=== PATIENT | female | born 1980 | race Caucasian/White ===

== ENCOUNTER → 2016-12-03 | Outpatient (CLI) | payer OTHER ==
--- NOTE | 2016-12-03 09:25 | MR ---
EXAMINATION TYPE: MR knee RT wo con DATE OF EXAM: 12/03/2016 7:24 AM COMPARISON: NONE HISTORY: Right knee pain TECHNIQUE: Multiplanar, multisequence imaging of the right knee is performed without IV contrast. FINDINGS: MEDIAL MENISCUS: There is linear signal within the posterior horn of the medial meniscus which extend s to the periphery of the meniscus. The microtear is difficult to exclude. The remainder of the media l meniscus appears homogeneous. LATERAL MENISCUS: Anterior and posterior horns are intact without tear. CRUCIATE LIGAMENTS: The anterior and posterior cruciate ligaments are intact and unremarkable. COLLATERAL LIGAMENTS: The medial collateral ligament and lateral collateral ligament complex are inta ct and unremarkable. EXTENSOR MECHANISM: Visualized quadriceps and patellar tendons are intact. EFFUSION: No significant suprapatellar joint effusion. POPLITEAL CYST: No popliteal/marcial cyst. TRICOMPARTMENT SPACES: Intact CARTILAGE: Intact BONE MARROW SIGNAL: No focal abnormal marrow signal is appreciated. OTHER: No additional significant abnormality is appreciated. IMPRESSION: There is linear signal within the posterior horn of the medial meniscus which extends to the peripher y of the meniscus. The microtear is difficult to exclude.
== END | disposition home or self-care (01) ==
LOC: RADMRIMAIN 06:36
PROVIDERS: ATTEND Orthopaedic Surgery
DX: M25.561 Pain in right knee (principal)

== ENCOUNTER → 2017-02-25 | Outpatient (CLI) | payer OTHER ==
[2017-02-25 09:31] LABS: Basophils % (A) 0 %; CH 30.8; CHCM 33.4; Eosinophils # (A) 0.2 k/uL (0-0.7); Eosinophils % (A) 2 %; HCT 45.4 % (34.0-46.0); Luc # (Auto) 0.09; Luc % (Auto) 1; Lymphocytes # (A) 1.9 k/uL (1.0-4.8); Lymphocytes % (A) 21 %; MCH 30.6 pg (25.0-35.0); MCHC 32.9 g/dL (31.0-37.0); MCV 92.8 fL (80.0-100.0); Mean Platelet Volume 6.9; Monocytes # (A) 0.4 k/uL (0-1.0); Monocytes % (A) 5 %; Neutrophils # (A) 6.4 k/uL (1.3-7.7); Neutrophils % (A) 72 %; RBC 4.89 m/uL (3.80-5.40); RDW 12.5 % (11.5-15.5); WBC (Perox) 9.26
[2017-02-25 10:17] LABS: Potassium 4.2 mmol/L (3.5-5.1)
== END | disposition home or self-care (01) ==
LOC: LABPAT 08:26
PROVIDERS: ATTEND Orthopaedic Surgery
DX: Z01.812 Encounter for preprocedural laboratory examination (principal)
CPT/HCPCS: 80051; 85025

== ENCOUNTER 2017-03-26 07:46 | Day surgery (SDC) | payer OTHER ==
[2017-03-20 11:09] VITALS: BMI 20.8
--- NOTE | 2017-03-26 07:08 | P.HPOR ---
History of Present Illness H&P Date: 03/26/17 Chief Complaint: 36-year-old patient seen with progressive right knee pain Past Medical History Past Medical History: Musculoskeletal Disorder Additional Past Medical History / Comment(s): HYPOGLYCEMIC. OCC ELEV BLOOD PRESSURE. RT KNEE PAIN. HERNIATED DISCS X2, C-1 & S-1. History of Any Multi-Drug Resistant Organisms: None Reported Past Surgical History: No Surgical Hx Reported Additional Past Anesthesia/Blood Transfusion Reaction / Comment(s): NO PREVIOUS ANESTHESIA. Smoking Status: Current every day smoker - Past Family History Mother Additional Family Medical History / Comment(s): MS Medications and Allergies Home Medications Medication Instructions Recorded Confirmed Type Bcp (Unsure Of Name) 1 tab PO HS 03/20/17 History Allergies Allergy/AdvReac Type Severity Reaction Status Date / Time Penicillins Allergy Itching Verified 03/20/17 10:47 Physical Examination Osteopathic Statement: *. No significant issues noted on an osteopathic structural exam other than those noted in the History and Physical/Consult. Range of motion 0-130. Tenderness along the medial joint line. Positive medial Nguyễn's. Tenderness along the lateral joint line. Positive lateral Nguyễn's. Ligaments are stable. Hip rotation is without pain. Distal neurovascular exam is intact. Results X-ray right knee 11/19/16 no evidence for bony abnormality MRI right knee 12/03/16 abnormal signal medial meniscus Assessment and Plan Plan: Assessment: Internal derangement right knee with medial meniscal tear Plan: Arthroscopy right knee with partial meniscectomy and debridement
[~2017-03-26 07:46] MED LIST: DEXAMETHASONE SOD PHOSPHATE 10 MG/ML 1 ML VIAL IV ONE; HYDROmorphone 1 MG/ML 1 ML SYRINGE IVP PRN; LACTATED RINGERS 1,000 ML IV SCH; MIDAZOLAM 2 MG/2 ML VIAL IV PRN; ONDANSETRON 4 MG/2 ML VIAL IVP ONE; ceFAZolin 1,000 MG in DEXTROSE/WATER 1 50ML.BAG IV ONE
[2017-03-26] MEDS ORDERED: LIDOCAINE 1% 20 ML VIAL (10MG/ML) FOR IV START INTRADERMA ONE (08:18)
[2017-03-26] MEDS ORDERED: fentaNYL (PF) 50 MCG/ML 2 ML AMP ONE (09:49)
[2017-03-26] MEDS ORDERED: MIDAZOLAM 2 MG/2 ML VIAL ONE (09:49)
[2017-03-26] MEDS ORDERED: KETOROLAC 30 MG/ML 1 ML VIAL ONE (09:49)
[2017-03-26] MEDS ORDERED: PROPOFOL 10 MG/ML 20 ML VIAL IV ONE (09:49)
[2017-03-26] MEDS ORDERED: LIDOCAINE 1% INJ 10MG/ML (20 ML MDV) ONE (09:49)
[2017-03-26] MEDS ORDERED: BUPIVACAIN-EPI 0.25%-1:200,000 30 ML VIAL INTRAARTIC ONE (09:49)
[2017-03-26] MEDS ORDERED: SODIUM CHLORIDE 0.9% 100 ML with CLINDAMYCIN 600 MG IV ONE ×2 (10:00)
--- NOTE | 2017-03-26 10:34 | P.OP ---
Date of Procedure: 03/26/17 Preoperative Diagnosis: Internal derangement right knee Postoperative Diagnosis: 1. Tear medial meniscus right knee 2. 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 Grade 1/2 chondromalacia patella right knee 4. Reactive synovitis medial and suprapatellar compartments right knee Procedure(s) Performed: 1. Arthroscopic partial medial meniscectomy right knee 2. Arthroscopic chondroplasty medial femoral condyle right knee 3. Arthroscopic chondroplasty patella right knee 4. Arthroscopic partial synovectomy medial and suprapatellar compartments right knee Implants: Anesthesia: GETA, local Surgeon: Asher Gresham Estimated Blood Loss (ml): 7 Pathology: none sent Condition: stable Disposition: PACU Indications for Procedure: 36-year-old patient seen with progressive right knee pain. After treatment options were discussed, she elected to proceed with arthroscopy. Operative Findings: See description of procedure Description of Procedure: Patient was taken to the operative suite. Patient underwent a general anesthetic by the department of anesthesia. Patient was given preoperative antibiotics. The right lower extremity was placed in a well-padded arthroscopic leg bundy. The right leg was prepped and draped in the normal sterile orthopedic fashion. A lateral parapatellar and suprapatellar incision was made. Trochars were inserted. Arthroscopy was initiated. Suprapatellar pouch revealed thick reactive synovitis. The patellofemoral joint appeared to articulate congruently. There was grade 1/2 chondromalacia with some osteochondral tears present. The scope was guided into the medial gutter. No loose bodies or plica were identified. The scope was then guided into the medial compartment. A medial parapatellar incision was made. Trocar inserted followed by probe. There was a small radial tear posterior horn medial meniscus. There were grade 1/2 chondromalacia changes weightbearing surface medial femoral condyle with some osteochondral tears present. The medial tibial plateau was unremarkable. There was some reactive synovitis anteriorly. A partial medial meniscectomy was performed down to stable tissue. I performed a chondroplasty of the medial femoral condyle down to stable tissue. I performed a partial synovectomy. The residual meniscus was probed and found to be stable. The residual osteochondral surface was stable as well. Scope and probe were then guided into the intercondylar notch. Cruciates were identified, probed and found to be stable. The scope and probe were then guided into lateral compartment. The lateral meniscus was probed and found to be stable. The lateral femoral condyle and tibial plateau were stable. There was no reactive synovitis or loose bodies. The scope was in guided back into the suprapatellar compartment. I introduced a motorized shaver into the super patellar compartment performing a chondroplasty of the patella down to stable tissue. I debrided some piecemeal fragments of meniscus. I performed a partial synovectomy. Instruments were now removed from the joint. I took one more look on the entire knee, no residual debris. The joint was infiltrated with .25% Marcaine. Steri-Strips were applied to the portal sites. Sterile dressings were applied. The patient was placed into a AVILA hose. No tourniquet was utilized. The patient was awakened, transferred to a bed and taken to recovery stable satisfactory condition.
[2017-03-26 10:37] VITALS: TEMP 97.4
[2017-03-26] MEDS ORDERED: LACTATED RINGERS 1,000 ML IV ONE (10:49)
[2017-03-26 11:47] VITALS: RESP 18
[2017-03-26] MEDS ORDERED: traMADol 50 MG TAB PO ONE (11:48)
[2017-03-26 12:28] VITALS: BP 105/67; PULSE 67
== END 2017-03-26 12:26 | disposition home or self-care (01) ==
LOC: OR 07:46
PROVIDERS: ATTEND Orthopaedic Surgery
DX: S83.241A Other tear of medial meniscus, current injury, right knee, initial encounter (principal); X58.XXXA Exposure to other specified factors, initial encounter; M22.41 Chondromalacia patellae, right knee; M65.861 Other synovitis and tenosynovitis, right lower leg; G35 Multiple sclerosis; Z79.3 Long term (current) use of hormonal contraceptives; Z88.0 Allergy status to penicillin
CPT/HCPCS: 81025; 29881; J2250; J1100; J2405; J2001; J3010; J1885; J2704

== ENCOUNTER → 2017-06-17 | Outpatient (CLI) | payer OTHER ==
[2017-06-17 13:49] LABS: Basophils % (A) 0 %; CH 29.9; CHCM 32.5; Eosinophils # (A) 0.2 k/uL (0-0.7); Eosinophils % (A) 2 %; HCT 43.4 % (34.0-46.0); HDW 2.55; HGB 14.4 gm/dL (11.4-16.0); Luc # (Auto) 0.12; Luc % (Auto) 1; Lymphocytes # (A) 1.3 k/uL (1.0-4.8); Lymphocytes % (A) 15 %; MCH 30.7 pg (25.0-35.0); MCHC 33.3 g/dL (31.0-37.0); MCV 92.4 fL (80.0-100.0); Mean Platelet Volume 6.8; Monocytes # (A) 0.4 k/uL (0-1.0); Monocytes % (A) 5 %; Neutrophils # (A) 6.8 k/uL (1.3-7.7); Neutrophils % (A) 77 %; RDW 12.4 % (11.5-15.5); WBC 8.8 k/uL (3.8-10.6); WBC (Perox) 8.74
== END | disposition home or self-care (01) ==
LOC: LABPAT 12:40
PROVIDERS: ATTEND Obstetrics & Gynecology
DX: Z01.812 Encounter for preprocedural laboratory examination (principal)
CPT/HCPCS: 85025

== ENCOUNTER 2017-06-25 05:51 | Day surgery (SDC) | payer OTHER ==
[2017-06-24 08:46] VITALS: BMI 21.2
--- NOTE | 2017-06-24 13:11 | P.HPOB ---
History of Present Illness H&P Date: 06/24/17 Chief Complaint: Persistent high grade cervical dysplasia This patient is a pleasant female who has persistent HGSIL on her pap despite cyrotherapy. Her history is such that she had TYESHA II in 2012 and had cryo. Patient pap has shown ASCUS cannot rule out HGSIL. She is requesting LEEP instead of a repeat colpo. 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 States has Hypogylcemia. History of Any Multi-Drug Resistant Organisms: None Reported Past Surgical History: Orthopedic Surgery Additional Past Surgical History / Comment(s): R knee. Additional Past Anesthesia/Blood Transfusion Reaction / Comment(s): States woke up crying from last surgery. Smoking Status: Current every day smoker - Past Family History Mother Family Medical History: No Reported History Medications and Allergies Home Medications Medication Instructions Recorded Confirmed Type Control Medication 1 tab PO DAILY 06/24/17 06/24/17 History Allergies Allergy/AdvReac Type Severity Reaction Status Date / Time Penicillins Allergy Itching Verified 06/24/17 08:33 Exam - Vital Signs Vital signs: Intake and Output 06/23/17 06/24/17 06/24/17 22:59 06:59 14:59 Other: Weight 63.503 kg Patient Weight 06/25/17 06:59 Weight 63.503 kg - OBG Physical Exam Abdomen: bowel sounds normal, no diffuse tenderness, no bruit present, no guarding noted, no hepatomegaly, no splenomegaly, no mass Vulva: both: normal Vagina: normal moisture, no discharge Cervix: no lesion, no discharge Uterus: normal size, normal contour Results Pap on 05/06/2017 shows ASCUS with positive HR HPV and cannot exclude HGSIL Assessment and Plan (1) Pap smear cannot exclude high grade squamous intraepithelial lesion (ASC-H) Narrative/Plan: This is a pleasant 36 yr female with HGSIL on pap, persistent. Desires LEEP excision. Plan is colposcopy with LEEP excision of the ecto/endo cervix. I have discussed this surgery in detail with the patient including the risks: infection, bleeding, possible cervical incompetence and future loss. She also understands the final pathology may not reveal high grade changes. All of the patients questions were answered and a written consent was obtained. Status: Chronic
[~2017-06-25 05:51] MED LIST changes: +HYDROmorphone 0.5 MG/0.5 ML SYRINGE IVP PRN; -HYDROmorphone 1 MG/ML 1 ML SYRINGE IVP PRN; +Pre Op ABX Message 1 EACH MISC MISCELLANE ONE; +SCOPOLAMINE 1.5MG/72HR PATCH TRANSDERM ONE; -ceFAZolin 1,000 MG in DEXTROSE/WATER 1 50ML.BAG IV ONE
[2017-06-25] MEDS ORDERED: LACTATED RINGERS 1,000 ML IV ONE (06:11)
[2017-06-25] MEDS ORDERED: LIDOCAINE 1% 20 ML VIAL (10MG/ML) FOR IV START INTRADERMA ONE (06:24)
[2017-06-25 06:25] LABS: Glucose,Whole Blood 93 mg/dL (75-99)
[2017-06-25] MEDS ORDERED: MIDAZOLAM 2 MG/2 ML VIAL ONE (07:20)
[2017-06-25] MEDS ORDERED: LIDOCAINE 1% INJ 10MG/ML (20 ML MDV) ONE (07:20)
[2017-06-25] MEDS ORDERED: fentaNYL (PF) 50 MCG/ML 2 ML AMP ONE (07:20)
[2017-06-25] MEDS ORDERED: PROPOFOL 10 MG/ML 20 ML VIAL IV ONE (07:20)
[2017-06-25] MEDS ORDERED: IODINE/POTASS IOD (LUGOLS) BTL TOPICAL ONE (07:29)
[2017-06-25] MEDS ORDERED: FERRIC SUBSULFATE (MONSELS) JAR TOPICAL ONE (07:29)
--- NOTE | 2017-06-25 07:48 | P.OP ---
Date of Procedure: 06/25/17 Preoperative Diagnosis: High-grade abnormal Pap smear Postoperative Diagnosis: Same Procedure(s) Performed: Colposcopy with LEEP excision of the ectocervix and endocervix Anesthesia: MAC Surgeon: Yunier Arana Estimated Blood Loss (ml): 10 Urine output (ml): 50 Pathology: other (Ectocervix and endocervix) Condition: stable Disposition: PACU Indications for Procedure: Please see dictated H&P for intimate details of this patient's admission. Brief summary this pleasant 36-year-old 1 para 1 female who has abnormal Pap smear with high-grade changes. Patient's had this previously and had a cryo-done of the cervix she's now requesting LEEP excision of this area. Patient does understand this procedure and risks including risks of infection, bleeding, possible cervical incompetence in future pregnancies. Patient's questions are answered written consent is obtained. Operative Findings: No ectocervix lesions were noted on colposcopy Description of Procedure: This patient is taken to the operating room where she is laid in the supine position. She subsequently goes general mask anesthesia without incident. With an adequate level of anesthesia she's placed in the dorsal lithotomy position. She has a vaginal perineal prep and drape. I then drain her bladder for 50 mL of clear urine. The laser speculum was then placed into the vagina. Cervix is visualized and colposcopy is performed. Using a large LEEP loop on a 60/70 cutting cautery setting, I make one pass and completely remove the transformation zone of the ectocervix. A second pass is made with the small LEEP loop and the endocervix is excised. Both pieces are sent off separately to pathology. Cauterization is then done of the ectocervix the margins and the base with good hemostasis. Monsel's solution is used to completely assure hemostasis. This point the procedure is terminated. All counts are correct 3. There are no complications. Patient is taken to the recovery room in satisfactory condition.
[2017-06-25 07:55] VITALS: TEMP 97.9
[2017-06-25] MEDS ORDERED: KETOROLAC 30 MG/ML 1 ML VIAL IVP ONE (08:15)
[2017-06-25 08:18] VITALS: RESP 16
[2017-06-25] MEDS ORDERED: Acetaminophen-Codeine 300-30mg TAB PO ONE (08:45)
[2017-06-25 08:50] VITALS: BP 105/71; PULSE 63
== END 2017-06-25 09:21 | disposition home or self-care (01) ==
LOC: OR 05:51
PROVIDERS: ATTEND Obstetrics & Gynecology
DX: N87.0 Mild cervical dysplasia (principal); N72 Inflammatory disease of cervix uteri; Z79.3 Long term (current) use of hormonal contraceptives; Z88.0 Allergy status to penicillin
CPT/HCPCS: 57522; 81025; 88307; J2250; J1100; J2405; J2001; J3010; J1885; J2704

== ENCOUNTER → 2018-02-17 | Outpatient (CLI) | payer OTHER ==
--- NOTE | 2018-02-17 11:09 | MM ---
Reason for exam: screening (asymptomatic). Baseline mammogram. History: Taking hormonal contraceptives beginning at age 16. Physical Findings: Nurse did not find any significant physical abnormalities on exam. MG Screening Mammo w CAD Bilateral CC and MLO view(s) were taken. The breast tissue is heterogeneously dense. This may lower the sensitivity of mammography. There is no discrete abnormality. These results were verbally communicated with the patient and result sheet given to the patient on 02/17/18. ASSESSMENT: Negative, BI-RAD 1 RECOMMENDATION: Routine screening mammogram of both breasts at age 41.
== END | disposition home or self-care (01) ==
LOC: RADMAMWWP 09:37
PROVIDERS: ATTEND Obstetrics & Gynecology
DX: Z12.31 Encounter for screening mammogram for malignant neoplasm of breast (principal)
CPT/HCPCS: 77067

== ENCOUNTER 2018-06-22 09:16 | Day surgery (SDC) | payer OTHER ==
[2018-06-17 15:30] VITALS: BMI 19.1
[~2018-06-22 09:16] MED LIST changes: -DEXAMETHASONE SOD PHOSPHATE 10 MG/ML 1 ML VIAL IV ONE; -HYDROmorphone 0.5 MG/0.5 ML SYRINGE IVP PRN; -LACTATED RINGERS 1,000 ML IV SCH; +LIDOCAINE 1% 20 ML VIAL (10MG/ML) FOR IV START INTRADERMA PRN; -MIDAZOLAM 2 MG/2 ML VIAL IV PRN; -ONDANSETRON 4 MG/2 ML VIAL IVP ONE; -Pre Op ABX Message 1 EACH MISC MISCELLANE ONE; -SCOPOLAMINE 1.5MG/72HR PATCH TRANSDERM ONE
[2018-06-22 10:14] VITALS: TEMP 97.1
[2018-06-22 10:27] LABS: Glucose,Whole Blood 100 mg/dL (75-99)
[2018-06-22] MEDS: LACTATED RINGERS 1,000 ML IV SCH ×2 (10:33→10:46)
[2018-06-22] MEDS ORDERED: MIDAZOLAM 2 MG/2 ML VIAL ONE (10:43)
[2018-06-22] MEDS ORDERED: PROPOFOL 10 MG/ML 20 ML VIAL IV ONE (10:43)
[2018-06-22] MEDS ORDERED: LIDOCAINE 1% INJ 10MG/ML (20 ML MDV) ONE (10:43)
--- NOTE | 2018-06-22 11:17 | P.PCN ---
Date of Procedure: 06/22/18 Procedure(s) Performed: Procedure: Esophagogastroduodenoscopy and biopsy. Preoperative diagnosis: Epigastric pain and weight loss. Postoperative diagnosis: 1. Very small sliding hiatal hernia with no obvious esophagitis or complicated reflux disease. 2. Minimal antral gastritis with no ulcers or gastric outlet obstruction. 3. Multiple biopsies obtained from the duodenum, antrum and esophagus. Preparation and sedation: Was provided by anesthesia. Brief clinical history: The patient is a 37-year-old female who is scheduled for this evaluation because of postprandial epigastric pain that she has been experiencing for the last 3 months. She lost 10 pounds. No vomiting or bleeding or change in bowel habits. She did not respond to first-line medical therapy. This evaluation is to assess for peptic ulcer disease, complicated reflux disease or other pathology. Procedure: With the patient on her left lateral decubitus position and after informed consent and adequate sedation, I passed the Olympus-GIF 160 video upper endoscope through the cricopharyngeus down the esophagus. GE junction was around 39 cm from the incisors and there was a very small sliding hiatal hernia but no obvious esophagitis or complicated reflux disease. The endoscope was then passed into the stomach which was insufflated with air and inspected in detail including the retroflex view in the cardia. There was minimal mottling and erythema in the antrum but no ulcers or erosions. Pyloric channel , duodenal bulb, post bulbar area and descending duodenum appeared within normal limits. Because of her symptoms, I obtained biopsies from the duodenum, antrum and esophagus then the endoscope was withdrawn. The patient tolerated the procedure well. Plan: The patient was reassured. Will await biopsy results. Consideration can be given for further workup including ultrasound of the abdomen and other radiological studies based on her course and biopsy results. I would be happy to see in the office if her symptoms persist and she will follow-up with you as planned. I will keep you updated on her progress.
[2018-06-22 11:22] VITALS: RESP 18
[2018-06-22 11:34] VITALS: BP 100/65; PULSE 80
== END 2018-06-22 11:57 | disposition home or self-care (01) ==
LOC: ORWHC2ENDO 09:16
DX: K29.50 Unspecified chronic gastritis without bleeding (principal); K44.9 Diaphragmatic hernia without obstruction or gangrene; K21.9 Gastro-esophageal reflux disease without esophagitis; Z88.0 Allergy status to penicillin; F17.210 Nicotine dependence, cigarettes, uncomplicated; Z79.899 Other long term (current) drug therapy
CPT/HCPCS: 81025; 88305; 43239; J2250; J2001; J2704

== ENCOUNTER → 2018-11-18 | Outpatient (CLI) | payer OTHER ==
[2018-11-18 10:22] LABS: Blood Urea Nitrogen 12 mg/dL (7-17)
--- NOTE | 2018-11-18 11:56 | CT ---
EXAMINATION TYPE: CT abdomen pelvis w con DATE OF EXAM: 11/18/2018 HISTORY: Hydronephrosis-unspecified per order. Inflamed right kidney per patient. CT DLP: 751mGycm Automated Exposure Control for Dose Reduction was Utilized. CONTRAST: CT scan of the abdomen and pelvis is performed with IV Contrast, patient injected with 100 mL of Isov ue 300. COMPARISON: None FINDINGS: LUNG BASES: No significant abnormality is appreciated. LIVER/GB: Occasional subcentimeter focus throughout the liver is too small to further characterize bu t presumed benign. PANCREAS: No significant abnormality is seen. SPLEEN: A 1.6 cm oval low dense lesion anterior superior spleen axial image 12 favors thin-walled cys t or other benign etiology. ADRENALS: No significant abnormality is seen. KIDNEYS: Some lobulated cortex to both kidneys is present. There is symmetric cortical medullary upta ke and excretion from both kidneys without hydronephrosis bilaterally. Bladder is poorly distended an d thus suboptimally evaluated. BOWEL: Oral contrast reaches level of sigmoid rectal junction. There is poor opacification of duodena l sweep. There is no suspicious small or large bowel dilatation. There is low-lying cecum into the ri ght pelvis with mild to moderate concentric wall thickening involving proximal portion of right colon as well as focally at the terminal ileum. Normal contrast-filled appendix is seen extending inferior ly from slightly low-lying cecum. Remainder of colon is Unremarkable. UTERUS/ADNEXA: Anteverted uterus is seen. LYMPH NODES: No greater than 1cm abdominal or pelvic lymph nodes are appreciated. OSSEOUS STRUCTURES: No significant abnormality is seen. OTHER: No significant additional abnormality is seen. IMPRESSION: 1. No hydronephrosis bilaterally with particular attention to the right kidney. 2. Mild to moderate enterocolitis felt present involving the terminal ileum and proximal two thirds o f the right colon including cecum. Differential includes infectious, inflammatory, and less likely is chemic etiologies, correlate clinically.
== END | disposition home or self-care (01) ==
LOC: RADCTMAIN 09:31
DX: N13.30 Unspecified hydronephrosis (principal)
CPT/HCPCS: 82565; 84520; 74177; Q9967

== ENCOUNTER 2020-11-23 06:42 | Day surgery (SDC) | payer BC, OTHER ==
[2020-11-20 10:30] VITALS: BMI 16.7
[~2020-11-23 06:42] MED LIST changes: +LACTATED RINGERS 1,000 ML IV SCH; -LIDOCAINE 1% 20 ML VIAL (10MG/ML) FOR IV START INTRADERMA PRN
[2020-11-23] MEDS ORDERED: LIDOCAINE 1% (10MG/ML) FOR IV START INTRADERMA ONE (07:10)
[2020-11-23 07:21] VITALS: RESP 16; TEMP 98.4
[2020-11-23] MEDS ORDERED: PROPOFOL 10 MG/ML 20 ML VIAL IV ONE (07:45)
--- NOTE | 2020-11-23 08:08 | P.PCN ---
Date of Procedure: 11/23/20 Procedure(s) Performed: BRIEF HISTORY: Patient is a 39-year-old pleasant female scheduled for an elective colonoscopy as a part of chronic diarrhea for the last few months duration. She is been having bowel movement severe from 10-12 a day which are loose to watery in consistency for the last 3-4 months duration. Recent stool studies and celiac panel was negative. She is scheduled for colonoscopy to evaluate for inflammatory bowel PROCEDURE PERFORMED: Colonoscopy with random biopsies. PREOPERATIVE DIAGNOSIS: Chronic diarrhea for 3-4 months duration. IV sedation per Anesthesia. PROCEDURE: After informed consent was obtained, the patient, was brought into the endoscopy unit. IV sedation was administered by Anesthesia under continuous monitoring. Digital rectal examination was normal. Initially the Olympus CF-160 flexible video colonoscope was then inserted in the rectum, gradually advanced into the cecum without any difficulty. Careful examination was performed as the scope was gradually being withdrawn. Ileocecal valve and the appendiceal orifice were visualized and appeared deformed. The terminal ileum was intubated and there were several scattered erosions in this area and biopsies were done. Prep was excellent. Mucosa of the cecum, was deformed. There are multiple serpigi nous ulcerations noted in the cecum ascending colon and transverse colon with normal appearing intervening mucosa consistent with Crohn's disease and multiple biopsies were done from this area. The descending colon, had few scattered erosions but the sigmoid colon, and rectum appeared normal. Retroflexion was performed in the rectum and no lesions were seen. The patient tolerated the procedure well. IMPRESSION: Multiple serpiginous ulcerations noted in the transverse colon, ascending colon and the cecum with deformed cecum consistent with inflammatory bowel disease Scattered erosions in the terminal ileum status post biopsies The sigmoid colon and rectum appeared normal RECOMMENDATIONS: Findings of this examination were discussed with the patient as well as a family. She was advised to follow with the biopsy results. He'll be seen in office in a week. In the meantime she'll be started on prednisone 40 mg daily for 2 weeks and this will be tapered by 5 mg every week..
[2020-11-23 08:21] VITALS: BP 103/61; PULSE 88
== END 2020-11-23 08:52 | disposition home or self-care (01) ==
LOC: ORWHC2ENDO 06:42
PROVIDERS: ATTEND Internal Medicine Gastroenterology
DX: K51.90 Ulcerative colitis, unspecified, without complications (principal)
CPT/HCPCS: 88305; 84703; 45380; J2704

== ENCOUNTER → 2021-11-30 | Outpatient (CLI) | payer OTHER ==
[2021-11-30 11:38] LABS: ALT 9 U/L (8-44); AST 13 U/L (13-35); African American GFR (CKD) 122.7 (60.0-200.0); Albumin 4.1 g/dL (3.8-4.9); Albumin/Globulin Ratio 1.51 (1.60-3.17); Alkaline Phosphatase 79 U/L (41-126); BUN/Creat Ratio 15.74 Ratio (12.00-20.00); Blood Urea Nitrogen 11.3 mg/dL (9.0-27.0); Calcium 9.2 mg/dL (8.7-10.3); Carbon Dioxide 24.4 mmol/L (20.0-27.5); Chloride 102 mmol/L (96-109); Chol/HDL Ratio 3.39 Ratio; Globulin 2.7 g/dL (1.6-3.3); Glucose 106 mg/dL (70-110); Non-African American GFR(CKD) 105.8 (60.0-200.0); Potassium 4.7 mmol/L (3.5-5.5); Sodium 138 mmol/L (135-145); Total Protein 6.8 g/dL (6.2-8.2)
== END | disposition home or self-care (01) ==
LOC: LABWHC1 09:07
PROVIDERS: ATTEND Family Medicine
DX: Z00.01 Encounter for general adult medical examination with abnormal findings (principal)
CPT/HCPCS: 36415; 80053; 80061

== ENCOUNTER → 2022-01-29 | Outpatient (CLI) | payer OTHER ==
--- NOTE | 2022-01-30 14:45 | MM ---
Reason for exam: screening (asymptomatic). Last mammogram was performed 3 years and 11 months ago. History: Taking hormonal contraceptives beginning at age 16. Physical Findings: A clinical breast exam by your physician is recommended on an annual basis and results should be correlated with mammographic findings. MG Screening Mammo w CAD Bilateral CC and MLO view(s) were taken. Prior study comparison: February 17, 2018, bilateral MG screening mammo w CAD. The breast tissue is heterogeneously dense. This may lower the sensitivity of mammography. No significant changes when compared with prior studies. ASSESSMENT: Benign, BI-RAD 2 RECOMMENDATION: Routine screening mammogram of both breasts in 1 year.
== END | disposition home or self-care (01) ==
LOC: RADMAMWWP 07:00
PROVIDERS: ATTEND Obstetrics & Gynecology
DX: Z12.31 Encounter for screening mammogram for malignant neoplasm of breast (principal)
CPT/HCPCS: 77067

== ENCOUNTER → 2022-06-23 | Outpatient (CLI) | payer OTHER ==
--- NOTE | 2022-06-23 12:31 | XR ---
EXAMINATION TYPE: XR chest 2V DATE OF EXAM: 06/23/2022 COMPARISON: NONE TECHNIQUE: PA and lateral views submitted. HISTORY: Cough FINDINGS: Diffuse bilateral infiltrates. Small bilateral effusion. No pneumothorax. Heart size normal. Mild hyp ertrophic changes spine. Report called to referring clinician 12:26 PM 06/23/2022. IMPRESSION: 1. Bilateral diffuse infiltrates correlate from a pneumonia..
== END | disposition home or self-care (01) ==
LOC: RADXRMAIN 12:10
PROVIDERS: ATTEND Family Medicine
DX: R91.8 Other nonspecific abnormal finding of lung field (principal)
CPT/HCPCS: 71046

== ENCOUNTER → 2022-08-13 | Outpatient (CLI) | payer OTHER ==
[2022-08-13 18:32] LABS: Hepatitis B Surface Antigen Nonreactive (Nonreactive); Hepatitis C IgG Antibody Nonreactive (Nonreactive)
[2022-08-13 18:34] LABS: Creatine Kinase 33 U/L (26-186); Uric Acid 5.1 mg/dL (2.9-7.7)
[2022-08-13 18:37] LABS: Rheumatoid Factor, Qnt <10 IU/mL (0-15)
[2022-08-13 18:57] LABS: Protein, Total 7.8 g/dL (6.2-8.2)
[2022-08-13 21:32] LABS: Anti-DNA, DS unit <1.0 IU/mL; Anti-Smith Ab Interp NEGATIVE (NEGATIVE); Cardiolipin Ab IgG Interp NEGATIVE (NEGATIVE); Cardiolipin Ab IgM Interp NEGATIVE (NEGATIVE); Cardiolipin IgM Antibody 1.9 U/mL; Centromere Antibody <0.2 AI; Centromere Antibody Interp NEGATIVE (NEGATIVE); Cyclic Citrull Pep IgG Unit <0.5 U/mL; Cyclic Citrullinated Pep IgG NEGATIVE (NEGATIVE); DNA Double-Stranded NEGATIVE (NEGATIVE); Scleroderma SC-70 Ab <0.2 AI
[2022-08-14 01:25] LABS: Appearance,Urine Cloudy (Clear); Bilirubin,Urine Negative (Negative); Blood,Urine Small (Negative); Color,Urine Yellow (Yellow); Ketones,Urine Trace mg/dL (Negative); Nitrite,Urine Negative (Negative); PH, Urine 6.5 (5.0-8.0); Specific Gravity,Urine 1.025 (1.001-1.030); Urobilinogen,Urine 0.2 (0.2,1.0)
[2022-08-14 02:14] LABS: Bacteria,Urine 2+ /HPF (None Seen)
[2022-08-14 12:13] LABS: HLA B27 NEGATIVE
[2022-08-15 11:15] LABS: Aldolase 3.6 U/L (1.2-7.6)
[2022-08-15 11:17] LABS: Angiotensin-1 Converting Enz. 14 U/L (8-52)
[2022-08-15 11:35] LABS: Free Kappa Lt Chain Qnt, Serum 2.44 mg/dL (0.33-1.94); Free Lambda Lt Chain Qnt, Seru 2.26 mg/dL (0.57-2.63)
[2022-08-15 11:52] LABS: APTT 39 Sec(s) (<43); Dilute Russell Viper Venom 33 Sec(s) (<44)
== END | disposition home or self-care (01) ==
LOC: LABWHC1 07:15
PROVIDERS: ATTEND Internal Medicine Rheumatology
DX: M32.0 Drug-induced systemic lupus erythematosus (principal); R76.8 Other specified abnormal immunological findings in serum
CPT/HCPCS: 36415; 81001; 82085; 82164; 82306; 82550; 83516; 83520; 83883; 84165; 84439; 84443; 84550; 85613; 85652; 85730; 86038; 86140; 86147; 86160; 86162; 86200; 86225; 86235; 86255; 86334; 86431; 86803; 86812; 87340

== ENCOUNTER → 2023-01-28 | Outpatient (CLI) | payer MEDICAID | END | disposition home or self-care (01) | LOC: LABWHC1 16:37 | PROVIDERS: ATTEND Nurse Practitioner Family | DX: Z53.9 Procedure and treatment not carried out, unspecified reason (principal) ==

== ENCOUNTER → 2023-01-29 | Outpatient (CLI) | payer MEDICAID ==
[2023-01-30 01:57] LABS: Basophils # (A) 0.01 X 10*3/uL (0.00-0.10); Basophils % (A) 0.1 %; Eosinophils # (A) 0 X 10*3/uL (0.04-0.35); Eosinophils % (A) 0 %; HCT 43.7 % (37.2-46.3); HGB 13.9 g/dL (12.0-15.0); Immature Grans, Automated 0.3 %; Lymphocytes # (A) 0.61 X 10*3/uL (0.90-5.00); Lymphocytes % (A) 6.6 %; MCH 29.2 pg (27.0-32.0); MCHC 31.8 g/dL (32.0-37.0); MCV 91.8 fL (80.0-97.0); Mean Platelet Volume 10.1 fL (9.5-12.2); Monocytes # (A) 0.12 X 10*3/uL (0.20-1.00); Monocytes % (A) 1.3 %; NRBC Per 100 WBC 0 /100 WBCS (0.0-0.0); Neutrophils # (A) 8.48 X 10*3/uL (1.80-7.70); Neutrophils % (A) 91.7 %; Platelet Count 412 X 10*3/uL (140-440); RBC 4.76 X 10*6/uL (4.10-5.20); RDW 12.8 % (11.5-14.5); WBC 9.25 X 10*3/uL (4.50-10.00)
[2023-01-30 04:20] LABS: Erythrocyte Sedimentation Rate 32 mm/Hr (0-20)
[2023-01-30 09:50] LABS: African American GFR (CKD) 124.7 (60.0-200.0); Albumin 4.3 g/dL (3.8-4.9); Albumin/Globulin Ratio 1.39 (1.60-3.17); Anion Gap 11.9 mmol/L (10.00-18.00); BUN/Creat Ratio 14.29 Ratio (12.00-20.00); Calcium 9.7 mg/dL (8.7-10.3); Carbon Dioxide 25.1 mmol/L (20.0-27.5); Globulin 3.1 g/dL (1.6-3.3); Non-African American GFR(CKD) 107.6 (60.0-200.0); Potassium 4.4 mmol/L (3.5-5.5); Total Bilirubin 0.3 mg/dL (0.30-1.20); Total Protein 7.4 g/dL (6.2-8.2)
[2023-01-30 10:15] LABS: Hepatitis B Surface Antigen Nonreactive (Nonreactive); Hepatitis C IgG Antibody Nonreactive (Nonreactive)
[2023-01-30 18:48] LABS: Hepatitis B Surface Antibody Reactive (Nonreactive)
--- NOTE | 2023-01-30 19:53 | MM ---
Reason for Exam: Screening (asymptomatic). Last screening mammogram was performed 12 month(s) ago. Patient History: Menarche at age 14. First Full-Term at age 27. Perimenopausal. Currently using Hormonal Contraceptives, starting at age 16. Risk Values: Emily 5 year model risk: 0.7%. NCI Lifetime model risk: 11.0%. Prior Study Comparison: 02/17/2018 Bilateral Screening Mammogram, [facility]. 01/29/2022 Bilateral Screening Mammogram, [facility]. Tissue Density: The breast tissue is heterogeneously dense. This may lower the sensitivity of mammography. Findings: Analyzed By CAD. There is no suspicious group of microcalcifications or new suspicious mass in either breast. Overall Assessment: Negative, BI-RAD 1 Management: Screening Mammogram of both breasts in 1 year. . Patient should continue monthly self-breast exams. A clinical breast exam by your physician is recommended on an annual basis. This exam should not preclude additional follow-up of suspicious palpable abnormalities. Note on Emily scores and lifetime risk: 1. A Emily score greater than 3% is considered moderate risk. If this is the case, consider specialist referral to assess eligibility for a risk reducing agent. 2. If overall lifetime risk for the development of breast cancer is 20% or higher, the patient may qualify for future screening with alternating mammogram and breast MRI. Electronically signed and approved by: Alonso Mendoza M.D. Radiologist
== END | disposition home or self-care (01) ==
LOC: RADMAMWWP 16:26
PROVIDERS: ATTEND Obstetrics & Gynecology
DX: Z12.31 Encounter for screening mammogram for malignant neoplasm of breast (principal)
CPT/HCPCS: 77063; 77067; 80053; 83993; 85025; 85652; 86140; 86480; 86704; 86706; 86803; 87340

== ENCOUNTER → 2023-05-21 | Outpatient (CLI) | payer MEDICAID ==
[2023-05-21 16:30] LABS: ALT 12 U/L (8-44); AST 18 U/L (13-35); Albumin 4.1 d/dL (3.8-4.9); Albumin/Globulin Ratio 1.52 Ratio (1.60-3.17); Alkaline Phosphatase 84 U/L (41-126); BUN/Creat Ratio 16.14 Ratio (12.00-20.00); Blood Urea Nitrogen 11.3 mg/dL (9.0-27.0); Calcium 9.3 mg/dL (8.7-10.3); Carbon Dioxide 27.3 mmol/L (21.6-31.8); Chloride 108 mmol/L (96-109); Chol/HDL Ratio 2.95 Ratio; Globulin 2.7 d/dL (1.6-3.3); Glucose 85 mg/dL (70-110); LDL Cholesterol,Calculated 85.6 mg/dL (0.0-131.0); Potassium 4.4 mmol/L (3.5-5.5); Sodium 143 mmol/L (135-145); Total Bilirubin 0.2 mg/dL (0.3-1.2); Total Protein 6.8 d/dL (6.2-8.2); VLDL Calculation 14.32 mg/dL (5.00-40.00)
[2023-05-21 16:51] LABS: Basophils # (A) 0.03 X 10*3/uL (0.00-0.10); Basophils % (A) 0.5 %; Eosinophils # (A) 0.13 X 10*3/uL (0.04-0.35); Eosinophils % (A) 2.1 %; HCT 43.1 % (37.2-46.3); HGB 13.5 d/dL (12.0-15.0); Lymphocytes # (A) 1.77 X 10*3/uL (0.90-5.00); Lymphocytes % (A) 29.1 %; MCH 28.2 pg (27.0-32.0); MCHC 31.3 d/dL (32.0-37.0); MCV 90.2 FL (80.0-97.0); Mean Platelet Volume 10.8 FL (9.5-12.2); Monocytes # (A) 0.45 X 10*3/uL (0.20-1.00); Monocytes % (A) 7.4 %; NRBC Per 100 WBC 0 X 10*3/uL (0.00-0.01); Neutrophils # (A) 3.69 X 10*3/uL (1.80-7.70); Neutrophils % (A) 60.7 %; Platelet Count 336 X 10*3/uL (140-440); RBC 4.78 X 10*6/uL (4.10-5.20); RDW 14.2 % (11.5-14.5); WBC 6.08 X 10*3/uL (4.50-10.00)
[2023-05-21 17:07] LABS: Erythrocyte Sedimentation Rate 17 mm/Hr (0-20)
== END | disposition home or self-care (01) ==
LOC: LABWHC1 11:23
PROVIDERS: ATTEND Family Medicine
DX: Z00.01 Encounter for general adult medical examination with abnormal findings (principal); K50.80 Crohn's disease of both small and large intestine without complications
CPT/HCPCS: 36415; 80053; 80061; 85025; 85652; 86140

== ENCOUNTER → 2023-11-06 | Outpatient (CLI) | payer MEDICAID ==
[2023-11-07 02:07] LABS: Basophils # (A) 0.03 X 10*3/uL (0.00-0.10); Basophils % (A) 0.4 %; Eosinophils # (A) 0.09 X 10*3/uL (0.04-0.35); Eosinophils % (A) 1.3 %; HGB 13.8 g/dL (12.0-15.0); Lymphocytes # (A) 2.17 X 10*3/uL (0.90-5.00); MCH 30.5 pg (27.0-32.0); MCHC 32.9 g/dL (32.0-37.0); MCV 92.7 FL (80.0-97.0); Mean Platelet Volume 10.4 FL (9.5-12.2); Monocytes # (A) 0.41 X 10*3/uL (0.20-1.00); Monocytes % (A) 5.9 %; NRBC Per 100 WBC 0 X 10*3/uL (0.00-0.01); Neutrophils # (A) 4.29 X 10*3/uL (1.80-7.70); Neutrophils % (A) 61.3 %; Platelet Count 277 X 10*3/uL (140-440); RBC 4.53 X 10*6/uL (4.10-5.20)
[2023-11-07 02:55] LABS: ALT 13 U/L (8-44); AST 20 U/L (13-35); Albumin 4.3 g/dL (3.8-4.9); Albumin/Globulin Ratio 1.54 Ratio (1.60-3.17); Alkaline Phosphatase 84 U/L (41-126); BUN/Creat Ratio 19.57 Ratio (12.00-20.00); Blood Urea Nitrogen 13.7 mg/dL (9.0-27.0); Calcium 9.9 mg/dL (8.7-10.3); Carbon Dioxide 28.4 mmol/L (21.6-31.8); Chloride 103 mmol/L (96-109); Globulin 2.8 g/dL (1.6-3.3); Glucose 90 mg/dL (70-110); Sodium 143 mmol/L (135-145); Total Bilirubin 0.3 mg/dL (0.3-1.2); Total Protein 7.1 g/dL (6.2-8.2)
== END | disposition home or self-care (01) ==
LOC: LABWHC1 15:31
PROVIDERS: ATTEND Internal Medicine Gastroenterology
DX: K50.90 Crohn's disease, unspecified, without complications (principal)
CPT/HCPCS: 36415; 80053; 85025

== ENCOUNTER → 2024-02-01 | Outpatient (CLI) | payer MEDICAID ==
--- NOTE | 2024-02-02 20:23 | MM ---
Reason for Exam: Screening (asymptomatic). Last screening mammogram was performed 12 month(s) ago. Patient History: Menarche at age 14. First Full-Term at age 27. Perimenopausal. Currently using Hormonal Contraceptives, starting at age 16. Risk Values: Emily 5 year model risk: 0.7%. NCI Lifetime model risk: 10.9%. Prior Study Comparison: 02/17/2018 Bilateral Screening Mammogram, [facility]. 01/29/2022 Bilateral Screening Mammogram, [facility]. 01/29/2023 Bilateral MG 3D screening mammo w/cad, [facility]. Tissue Density: The breasts are heterogeneously dense, which may obscure small masses. Findings: Analyzed By CAD. Areas of asymmetric density remain unchanged. There is no suspicious group of microcalcifications or new suspicious mass in either breast. Overall Assessment: Benign, BI-RAD 2 Management: Screening Mammogram of both breasts in 1 year. . Patient should continue monthly self-breast exams. A clinical breast exam by your physician is recommended on an annual basis. This exam should not preclude additional follow-up of suspicious palpable abnormalities. Note on Emily scores and lifetime risk: 1. A Emily score greater than 3% is considered moderate risk. If this is the case, consider specialist referral to assess eligibility for a risk reducing agent. 2. If overall lifetime risk for the development of breast cancer is 20% or higher, the patient may qualify for future screening with alternating mammogram and breast MRI. Electronically signed and approved by: Alonso Mendoza M.D. Radiologist
== END | disposition home or self-care (01) ==
LOC: RADMAMWWP 16:20
PROVIDERS: ATTEND Family Medicine
DX: Z12.31 Encounter for screening mammogram for malignant neoplasm of breast (principal)
CPT/HCPCS: 77063; 77067

== ENCOUNTER → 2024-05-13 | Outpatient (CLI) | payer MEDICAID | END | disposition home or self-care (01) | LOC: LABWHC1 13:06 | PROVIDERS: ATTEND Family Medicine | DX: Z53.9 Procedure and treatment not carried out, unspecified reason (principal) ==

== ENCOUNTER → 2024-07-06 | Outpatient (CLI) | payer MEDICAID ==
[2024-07-06 15:10] LABS: ALT 13 U/L (8-44); AST 22 U/L (13-35); Albumin 4.4 g/dL (3.8-4.9); Albumin/Globulin Ratio 1.57 Ratio (1.60-3.17); Alkaline Phosphatase 95 U/L (41-126); BUN/Creat Ratio 28.17 Ratio (12.00-20.00); Blood Urea Nitrogen 16.9 mg/dL (9.0-27.0); Calcium 9.3 mg/dL (8.7-10.3); Carbon Dioxide 26.6 mmol/L (21.6-31.8); Chloride 106 mmol/L (96-109); Globulin 2.8 g/dL (1.6-3.3); Glucose 88 mg/dL (70-110); LDL Cholesterol,Calculated 104.5 mg/dL (0.0-131.0); Potassium 4.1 mmol/L (3.5-5.5); Sodium 142 mmol/L (135-145); Total Bilirubin 0.5 mg/dL (0.3-1.2); Total Protein 7.2 g/dL (6.2-8.2); VLDL Calculation 15.62 mg/dL (5.00-40.00)
[2024-07-06 15:40] LABS: HCT 42.2 % (37.2-46.3); HGB 14.1 g/dL (12.0-15.0); MCH 31.5 pg (27.0-32.0); MCHC 33.4 g/dL (32.0-37.0); MCV 94.4 FL (80.0-97.0); Mean Platelet Volume 11.1 FL (9.5-12.2); NRBC Per 100 WBC 0 X 10*3/uL (0.00-0.01); Platelet Count 270 X 10*3/uL (140-440); RBC 4.47 X 10*6/uL (4.10-5.20); RDW 12.6 % (11.5-14.5); WBC 6.51 X 10*3/uL (4.50-10.00)
== END | disposition home or self-care (01) ==
LOC: LABWHC1 11:36
PROVIDERS: ATTEND Family Medicine
CPT/HCPCS: 36415; 80053; 80061; 85027

== ENCOUNTER → 2025-02-10 | Outpatient (CLI) | payer MEDICAID ==
--- NOTE | 2025-02-10 07:47 | MM ---
Reason for Exam: Screening (asymptomatic). Last screening mammogram was performed 12 month(s) ago. Patient History: Menarche at age 14. First Full-Term at age 27. Perimenopausal. Hormonal Contraceptives, starting at age 16. Risk Values: Emily 5 year model risk: 0.8%. NCI Lifetime model risk: 10.8%. Prior Study Comparison: 01/29/2022 Bilateral Screening Mammogram, [facility]. 01/29/2023 Bilateral MG 3D screening mammo w/cad, [facility]. 02/01/2024 Bilateral MG 3D screening mammo w/cad, [facility]. Tissue Density: The breasts are heterogeneously dense, which may obscure small masses. Findings: Analyzed By CAD. Right breast: Asymmetry right breast MLO view superior aspect middle depth 6.7 cm nipple. Not seen on CC view with Certainty. May Be Posterior Depth Lateral On Cc view. Left breast: There is no suspicious group of microcalcifications or new suspicious mass. Overall Assessment: Incomplete: need additional imaging evaluation, BI-RAD 0 Management: Diagnostic Mammogram of the right breast. Spot compression imaging right breast MLO view middle depth superiorly. [facility] will attempt to contact patient to return for supplemental views and ultrasound if indicated. Patient should continue monthly self-breast exams. A clinical breast exam by your physician is recommended on an annual basis. This exam should not preclude additional follow-up of suspicious palpable abnormalities. Note on Emily scores and lifetime risk: 1. A Emily score greater than 3% is considered moderate risk. If this is the case, consider specialist referral to assess eligibility for a risk reducing agent. 2. If overall lifetime risk for the development of breast cancer is 20% or higher, the patient may qualify for future screening with alternating mammogram and breast MRI. [facility], , 02/10/2025 7:44 AM. Electronically signed and approved by: Evelio Ramsay DO
== END | disposition home or self-care (01) ==
LOC: RADMAMWWP 07:12
PROVIDERS: ATTEND Family Medicine
DX: Z12.31 Encounter for screening mammogram for malignant neoplasm of breast (principal); R92.333 Mammographic heterogeneous density, bilateral breasts; Z92.0 Personal history of contraception
CPT/HCPCS: 77063; 77067